=== PATIENT | male | born 1965 | race Caucasian/White ===

== ENCOUNTER 2023-11-02 12:41 | Emergency (ER) | payer SELFPAY | END 2023-11-02 14:20 | disposition home or self-care (01) | LOC: MADERS 12:41 | DX: S82.62XA Displaced fracture of lateral malleolus of left fibula, initial encounter for closed fracture (principal); F17.220 Nicotine dependence, chewing tobacco, uncomplicated; W17.89XA Other fall from one level to another, initial encounter ==